=== PATIENT | female | born 1965 | race Caucasian/White ===

== ENCOUNTER 2024-11-30 18:53 | Emergency (ER) | payer OTHER ==
[2024-11-30] MEDS: LORazepam 1 MG Tab PO ONE (19:58)
[2024-11-30 19:59] LABS: BASOPHILS PERCENT AUTO 0.5 % (0.2-1.5); EOSINOPHILS ABSOLUTE AUTO 0.4 x10-3/uL (0.0-0.8); EOSINOPHILS PERCENT AUTO 5.9 % (0.6-8.1); HEMATOCRIT 48.5 % (34.2-48.2); HEMOGLOBIN 16.9 g/dL (11.4-15.5); LYMPHOCYTES ABSOLUTE AUTO 2.4 x10-3/uL (1.0-4.4); LYMPHOCYTES PERCENT AUTO 31.3 % (18.4-52.1); MEAN CORPUSCULAR HGB CONC 34.9 g/dL (31.9-34.8); MEAN CORPUSCULAR VOLUME 94.5 fL (76.7-100.5); MEAN PLATELET VOLUME 9.7 fL (7.1-12.4); MONOCYTES ABSOLUTE AUTO 0.7 x10-3/uL (0.3-1.0); MONOCYTES PERCENT AUTO 9.3 % (4.4-15.7); PLATELET COUNT,PLT 193 x10(3)uL (151-488); RED BLOOD CELL COUNT 5.13 x10(6)uL (3.60-5.20); RED CELL DISTRIBUTION WIDTH 12.6 % (12.3-16.5); WHITE BLOOD CELL COUNT,WBC 7.5 x10-3/uL (3.0-10.3)
[2024-11-30 20:01] LABS: BLOOD UREA NITROGEN,BUN 17 mg/dL (7-18); CALCIUM 9.4 mg/dL (8.6-10.2); CARBON DIOXIDE,CO2 27 mmol/L (21-32); CHLORIDE,CL 107 mmol/L (100-110); EST CRCL DRUG DOSING (CG) 55.31 mL/min; ESTIMATED GFR 64 mL/min (>60); GLUCOSE RANDOM 104 mg/dL (80-116); POTASSIUM,K 4.3 mmol/L (3.5-5.3); SODIUM,NA 144 mmol/L (135-145)
[2024-11-30 20:06] LABS: A/G RATIO 1.3; ALANINE AMINOTRANSFERASE,ALT 36 U/L (12-36); ALKALINE PHOSPHATASE 75 IU/L (56-112); ASPARTATE AMNIOTRANSFERASE,AST 16 IU/L (5-25); BILIRUBIN TOTAL 0.5 mg/dL (0.1-1.3); MAGNESIUM 2.2 mg/dL (1.8-2.5); PROTEIN TOTAL,TP 7.1 g/dL (6.0-8.0)
[2024-11-30] MEDS: Losartan 50 MG Tab PO ONE (20:16)
[2024-11-30] MEDS: LORazepam 1 MG Tab ONE (20:16)
== END 2024-11-30 22:30 | disposition home or self-care (01) ==
LOC: FB.ED 18:53 → MERGE 18:53 → FB.ED 22:30
DX: I11.9 Hypertensive heart disease without heart failure (principal); E03.9 Hypothyroidism, unspecified; Z88.2 Allergy status to sulfonamides
CPT/HCPCS: 36415; 80053; 83735; 84443; 84484; 85025; 93005; 99283; A9270